=== PATIENT | female | born 1945 | race Caucasian/White ===

== ENCOUNTER 2018-06-15 13:18 | Outpatient (CLI) | payer MEDICARE ==
--- NOTE | 2018-06-16 09:55 | Mammography Report ---
Reason: SCREENING MAMMO Procedure Date: 06/15/2018 Accession Number: [id number] / [id number] Procedure: MGS - Screening Mammo Dig Bilat CPT Code: FULL RESULT: EXAM: Screening Mammo Dig Bilat DATE: 06/15/2018 1:45 PM CLINICAL HISTORY: 73 year-old nulliparous female presents for screening mammogram. TECHNIQUE: Bilateral CC and MLO views were obtained. COMPARISON: 07/01/2016, 12/27/2014. FINDINGS: The breasts demonstrate diffuse fatty replacement bilaterally. There is a stable typically benign coarse calcification in the right breast. No suspicious masses, clustered microcalcifications, or regions of architectural distortion are identified. IMPRESSION: Benign findings RECOMMENDATION: Routine annual screening unless otherwise clinically indicated. BIRADS CATEGORY 2: Benign findings STANDARD QUALIFYING STATEMENTS: 1. This examination was reviewed with the aid of Computer-Aided Detection (CAD). 2. A negative or benign imaging report should not delay biopsy if clinically suspicious findings are present. Consider surgical consultation if warrented. More than 5% of cancers are not identified by imaging. 3. Dense breasts may obscure an underlying neoplasm. 4. This examination was reviewed without the aid of 3D breast imaging (tomosynthesis).
== END 2018-06-15 13:19 | disposition home or self-care (01) ==
LOC: DI.S 13:18
PROVIDERS: ATTEND Internal Medicine
DX: Z12.31 Encounter for screening mammogram for malignant neoplasm of breast (principal)
CPT/HCPCS: 77067

== ENCOUNTER 2018-10-21 08:00 | Outpatient (CLI) | payer MEDICARE | END 2018-10-21 23:59 | disposition home or self-care (01) | LOC: LAB.R 08:00 | PROVIDERS: ATTEND Nurse Practitioner Obstetrics & Gynecology | DX: N18.9 Chronic kidney disease, unspecified (principal) | CPT/HCPCS: 81599; 87255 ==

== ENCOUNTER 2019-06-28 10:55 | Outpatient (CLI) | payer MEDICARE ==
--- NOTE | 2019-06-28 16:37 | XRAY Report ---
Reason: PAIN IN RT HIP JOINT Procedure Date: 06/28/2019 Accession Number: [id number] / [id number] Procedure: XRS - Hip w/Pelvis 2-3V RT CPT Code: Final Report FULL RESULT: EXAM: PELVIS AND RIGHT HIP RADIOGRAPHY EXAM DATE: 06/28/2019 11:07 AM. CLINICAL HISTORY: PAIN IN RT HIP JOINT. COMPARISON: None. TECHNIQUE: Pelvis and right hip, each 1 view. FINDINGS: Bones: Mild osteopenia. No definite fracture or other bone lesion. Joints: Moderate joint space narrowing on the right with sclerosis and marginal osteophytosis. Left hip joint space is well preserved. Unremarkable SI joints. Degenerative changes in lower lumbar spine. Soft Tissues: Prominent soft tissue calcification projects over the left lateral hip and greater trochanter. IMPRESSION: 1. 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 2. Other chronic or incidental findings. RADIA
== END 2019-06-28 10:56 | disposition home or self-care (01) ==
LOC: DI.S 10:55
PROVIDERS: ATTEND Nurse Practitioner Family
DX: M16.11 Unilateral primary osteoarthritis, right hip (principal)

== ENCOUNTER 2020-10-15 13:44 | Outpatient (CLI) | payer MEDICARE ==
--- NOTE | 2020-10-16 10:05 | Mammography Report ---
BILATERAL DIGITAL SCREENING MAMMOGRAM 3D/2D: 10/15/2020 CLINICAL: Routine screening. Comparison is made to exams dated: 06/15/2018 mammogram, 07/01/2016 mammogram, 12/27/2014 mammogram, 09/17/2011 mammogram, and 10/03/2009 mammogram - [facility]. The tissue of both breas ts is predominantly fatty. No significant masses, calcifications, or other findings are seen in either breast. There has been no significant interval change. IMPRESSION: NEGATIVE There is no mammographic evidence of malignancy. A 1 year screening mammogram is recommended. This exam was interpreted at Station ID: [id number]. NOTE: For mammograms, a report in lay terms will be sent to the patient. Approximately 15% of breast malignancies will not be visualized mammographically. In the management of a palpable breast mass, a negative mammogram must not discourage biopsy of a clinically suspicious lesion. Electronically Signed By: Rayo Best acr/penrad:10/15/2020 15:36:04 ACR BI-RADS Category 1: Negative 3341F PARENCHYMAL PATTERN: (F) - The breast(s) demonstrate(s) diffuse fatty replacement. BI-RADS CATEGORY: (1) - 1 RECOMMENDATION: (ANNUAL) - Recommend routine annual screening mammography. [id number] 1 year screening LATERALITY: (B)
== END 2020-10-15 13:45 | disposition home or self-care (01) ==
LOC: DI 13:44
PROVIDERS: ATTEND Family Medicine
DX: Z12.31 Encounter for screening mammogram for malignant neoplasm of breast (principal)

== ENCOUNTER 2020-10-15 13:49 | Outpatient (CLI) | payer MEDICARE ==
--- NOTE | 2020-10-15 15:28 | DEXA Report ---
PROCEDURE: Dexa Spine and/or Hip INDICATIONS: BONE DISORDER TECHNIQUE: Dual energy x-ray absorptiometry (DXA) was performed on a [employer] System. Regions measur ed are the AP Spine, femoral neck, and if needed forearm. COMPARISON: 12/27/2014 FINDINGS: Lumbar Spine: Bone Mineral Density 1.033 g/cm/cm,T score -1.1, osteopenia Left Femoral Neck: Bone Mineral Density 0.809 g/cm/cm, T score -1.6, osteopenia (T score greater or equal to -1.0: NORMAL) (T score from -1.1 to -2.4: OSTEOPENIA) (T score less than or equal to -2.5 to: OSTEOPOROSIS) Impression: Osteopenia. Patient is at increased risk for fracture Patients with diagnosis of osteoporosis or osteopenia should have regular bone mineral density assess ment. For those eligible for Medicare, routine testing is allowed once every 2 years. Testing frequ ency can be increased for patients who have rapidly progressing disease or for those who are receivin g medical therapy to restore bone mass. Reviewed by: Mannie Sams MD on 10/15/2020 3:27 PM PST Approved by: Mannie Sams MD on 10/15/2020 3:27 PM PST Station ID: [id number]
== END 2020-10-15 13:50 | disposition home or self-care (01) ==
LOC: DI 13:49
PROVIDERS: ATTEND Internal Medicine
DX: M85.89 Other specified disorders of bone density and structure, multiple sites (principal)

== ENCOUNTER 2021-11-07 15:11 | Outpatient (CLI) | payer MEDICARE ==
--- NOTE | 2021-11-07 16:12 | XRAY Report ---
PROCEDURE: Hip w/Pelvis 2-3V RT INDICATIONS: RIGHT HIP PAIN TECHNIQUE: AP pelvis with lateral view(s) of the right hip(s). COMPARISON: June 28, 2019 FINDINGS: BONES/JOINTS: No acute, displaced fracture. No widening of the pubic symphysis. The sacroiliac joints are symmetric. The femoral heads are normal ly seated within the acetabulum. Advanced arthrosis of the right hip with joint space loss, sclerosis of the opposing articular surfaces, and osteophytosis. 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 IMPRESSION: 1.Advanced right hip degeneration as detailed above. Reviewed by: Jesus Blevins MD on 11/07/2021 4:10 PM PDT Approved by: Jesus Blevins MD on 11/07/2021 4:10 PM PDT Station ID: [id number]
== END 2021-11-07 15:12 | disposition home or self-care (01) ==
LOC: DI.S 15:11
PROVIDERS: ATTEND Internal Medicine
DX: M16.11 Unilateral primary osteoarthritis, right hip (principal)

== ENCOUNTER 2022-02-26 10:46 | Outpatient (CLI) | payer MEDICARE ==
[2022-02-26 11:02] LABS: BASOPHILS # (AUTO) 0.1 10^3/uL (0.0-0.1); BASOPHILS % (AUTO) 0.9 %; EOSINOPHILS # (AUTO) 0.2 10^3/uL (0.0-0.7); EOSINOPHILS % (AUTO) 2.9 %; HCT - HEMATOCRIT 43.2 % (37.0-47.0); LYMPHOCYTES # (AUTO) 2.6 10^3/uL (1.5-3.5); LYMPHOCYTES % (AUTO) 31.5 %; MEAN CORPUSCULAR HEMOGLOBIN 30.1 pg (27.0-31.0); MEAN CORPUSCULAR HGB CONC 32.4 g/dL (32.0-36.0); MEAN CORPUSCULAR VOLUME 92.9 fL (81.0-99.0); MEAN PLATELET VOLUME 8.8 fL (7.9-10.8); MONOCYTES # (AUTO) 0.6 10^3/uL (0.0-1.0); MONOCYTES % (AUTO) 6.9 %; NEUTROPHILS # (AUTO) 4.7 10^3/uL (1.5-6.6); NEUTROPHILS % (AUTO) 57.6 %; PLT - PLATELET COUNT 300 10^3/uL (130-450); RED BLOOD COUNT 4.65 10^6/uL (4.20-5.40); RED CELL DISTRIBUTION WIDTH 13.8 % (12.0-15.0); WHITE BLOOD COUNT 8.2 x10^3/uL (4.8-10.8)
[2022-02-26 11:21] LABS: CALCIUM 9.7 mg/dL (8.5-10.3); CREATININE 0.6 mg/dL (0.4-1.0); POTASSIUM 4.5 mmol/L (3.5-5.0)
[2022-02-26 11:29] LABS: BILIRUBIN,URINE NEGATIVE (NEGATIVE); GLUCOSE, URINE (UA) NEGATIVE (NEGATIVE); KETONES,URINE (UA) NEGATIVE (NEGATIVE); LEUKOCYTE ESTERASE, URINE NEGATIVE (NEGATIVE); NITRITE,URINE NEGATIVE (NEGATIVE); OCCULT BLOOD,URINE NEGATIVE (NEGATIVE); PROTEIN,URINE NEGATIVE (NEGATIVE); UROBILINOGEN,URINE 0.2 (NORMAL) E.U./dL (NORMAL)
[2022-02-26 11:32] LABS: CLARITY,URINE CLEAR (CLEAR)
[2022-02-26 11:40] LABS: INR 1.1 (0.8-1.2); PT - PROTHROMBIN TIME 12.6 secs (9.9-12.6)
[2022-02-26 11:47] LABS: PARTIAL THROMBOPLASTIN TIME 31.1 secs (24.9-33.3)
[2022-02-26 11:49] LABS: BACTERIA,URINE Few /HPF (None Seen); RBC,URINE 0-5 /HPF (0-5); SQUAMOUS EPITHELIAL CELL,UR MOD Squamous (<= Few); WBC,URINE 0-3 /HPF (0-5)
[2022-02-26 14:41] LABS: ESTIMATED AVERAGE GLUCOSE 123 mg/dL (70-100); HEMOGLOBIN A1c% 5.9 % (4.27-6.07)
== END 2022-02-26 10:47 | disposition home or self-care (01) ==
LOC: LAB 10:46
PROVIDERS: ATTEND Orthopaedic Surgery
DX: Z01.812 Encounter for preprocedural laboratory examination (principal); R73.9 Hyperglycemia, unspecified; N39.0 Urinary tract infection, site not specified; Z51.81 Encounter for therapeutic drug level monitoring
CPT/HCPCS: 36415; 80048; 81001; 83036; 85025; 85610; 85730; 87086

== ENCOUNTER 2022-03-02 13:28 | Outpatient (CLI) | payer MEDICARE | END 2022-03-02 13:29 | disposition home or self-care (01) | LOC: RT 13:28 | PROVIDERS: ATTEND Orthopaedic Surgery | DX: Z01.810 Encounter for preprocedural cardiovascular examination (principal) | CPT/HCPCS: 93005 ==

== ENCOUNTER 2023-08-23 12:45 | Outpatient (CLI) | payer MEDICARE ==
--- NOTE | 2023-08-24 10:41 | Mammography Report ---
BILATERAL DIGITAL SCREENING MAMMOGRAM 3D/2D: 08/23/2023 CLINICAL: Routine screening. Comparison is made to exams dated: 10/15/2020 mammogram, 06/15/2018 mammogram, and 07/01/2016 mammogra m - [facility]. There are scattered areas of fibroglandular density in both breasts (category b / 25%-50% glandular t issue). No significant masses, calcifications, or other findings are seen in either breast. There has been no significant interval change. IMPRESSION: NEGATIVE There is no mammographic evidence of malignancy. A 1 year screening mammogram is recommended. Based on the Tyrer Cuzick model (a risk assessment model) the patients lifetime risk is 3.8% and her 10 year risk is 0.0%. According to the ACR, ACS, and NCCN guidelines, an annual breast MRI exam jordan g with mammogram is recommended if the patients lifetime risk is 20% or greater. This exam was interpreted at Station ID: [id number]. NOTE: For mammograms, a report in lay terms will be sent to the patient. Approximately 15% of breast malignancies will not be visualized mammographically. In the management of a palpable breast mass, a negative mammogram must not discourage biopsy of a clinically suspicious lesion. Electronically Signed By: Corrina clarke/ian:08/23/2023 16:47:03 letter sent: No_Letter ACR BI-RADS Category 1: Negative 3341F PARENCHYMAL PATTERN: (A) - The breast(s) demonstrate(s) scattered fibroglandular densities. BI-RADS CATEGORY: (1) - 1 Mammogram [id number] 1 year screening LATERALITY: (B)
== END 2023-08-23 12:46 | disposition home or self-care (01) ==
LOC: DI.S 12:45
PROVIDERS: ATTEND Physician Assistant
DX: Z12.31 Encounter for screening mammogram for malignant neoplasm of breast (principal); R92.323 Mammographic fibroglandular density, bilateral breasts

== ENCOUNTER 2024-03-10 04:39 | Emergency (ER) | payer MEDICARE ==
--- NOTE | 2024-03-10 05:34 | ED Physician Documentation ---
History of Present Illness - Stated complaint Stated Complaint: GLF/HEAD LAC - Chief complaint Chief Complaint: Trauma Hd/Nk - History obtained from History obtained from: Patient - Additonal information Additional information: 78-year-old woman presents with multiple episodes of nonbloody nonbilious nausea and vomiting since noon yesterday with syncopal episode when getting up to go to the bathroom to vomit overnight. Patient did hit her head on concrete floor. Denies other injury. Denies fever, diarrhea. She does think that she may have sustained food poisoning. PD PAST MEDICAL HISTORY - Past Medical History Past Medical History: No - Past Surgical History Past Surgical History: Yes Ortho: Hip replacement - Allergies Allergies/Adverse Reactions: Allergies Allergy/AdvReac Type Severity Reaction Status Date / Time No Known Drug Allergies Allergy Verified 03/10/24 04:54 - Social History Does the pt smoke?: No Smoking Status: Never smoker Does the pt drink ETOH?: Yes - Immunizations Immunizations: TDAP >10years/unknown PD ED PE NORMAL - Vitals Vital signs reviewed: Yes - General General: Alert and oriented X 3, No acute distress, Well developed/nourished - HEENT HEENT: Atraumatic, PERRL, EOMI, Moist mucous membranes, Pharynx benign, Other (stellate laceration to R forehead) - Neck Neck: No bony TTP - Cardiac Cardiac: RRR - Respiratory Respiratory: No respiratory distress, Clear bilaterally - Abdomen Abdomen: Non tender, Non distended, No organomegaly - Back Back: No spinal TTP - Derm Derm: Normal color, Warm and dry - Neuro Neuro: Alert and oriented X 3 Eye Opening: Spontaneous Motor: Obeys Commands Verbal: Oriented GCS Score: 15 Results - Vitals Vitals: Vital Signs - 24 hr 03/10/24 03/10/24 03/10/24 04:49 05:04 05:59 Temperature 36.4 C L Heart Rate 77 68 74 Respiratory 16 16 18 Rate Blood Pressure 163/90 H 182/81 H 159/101 H O2 Saturation 97 99 99 03/10/24 06:50 Temperature Heart Rate 78 Respiratory 14 Rate Blood Pressure 145/57 H O2 Saturation 98 Oxygen O2 Source Room air - EKG (time done) 0502 EKG releavant findings:: EKG personally interpreted by author of this note. Relevant findings are: Rate: Rate (enter#) (65) Rhythm: NSR [place]: Normal Intervals: Normal CO QRS: Normal Ischemia: Normal ST segments - Labs Labs: Laboratory Tests 03/10/24 03/10/24 05:39 05:39 WBC 14.7 H RBC 5.04 Hgb 14.8 Hct 44.6 MCV 88.5 MCH 29.4 MCHC 33.2 RDW 13.2 Plt Count 278 MPV 9.0 Neut # (Auto) 12.6 H Lymph # (Auto) 1.5 [place] # (Auto) 0.6 Eos # (Auto) 0.0 Baso # (Auto) 0.0 Absolute Nucleated RBC 0.00 Nucleated RBC % 0.0 Sodium 129 L Potassium 3.8 Chloride 94 L Carbon Dioxide 25 Anion Gap 10.0 BUN 8 Creatinine 0.6 Estimated GFR (MDRD) 97 Glucose 198 H Calcium 9.7 Total Bilirubin 0.8 AST 32 ALT 32 Alkaline Phosphatase 79 Total Protein 7.4 Albumin 4.3 Globulin 3.1 Albumin/Globulin Ratio 1.4 Lipase 14 Procedures - Laceration (location) Face right Length in cm: 5 Wound type: Stellate, Irregular Neurovascular status: Sensory intact, Motor intact, Vascular intact Anesthesia: Lidocaine 1% with epi Wound preparation: Irrigated copiously NS, Wound explored, To the base Skin layer closure: Nylon, Size #-0 - enter number (6), Sutures - enter # (8) Other: Patient tolerated well, No complications, Neurovascular intact, Dressing applied, Tetanus booster given - Reduction Body part reduced: Other (left 5th finger dislocation) Anesthesia: Digital block (1% lidocaine without epi) Reduction aftercare: NV intact, Xray confirms reduction, Alignment improved, Splint applied, Patient tolerated well PD Medical Decision Making - ED course ED course: 78yF p/w syncope and collapse with laceration to R forehead, repaired with sutures, as well as nbnb n/v possibly 2/2 food poisoning, improving s/p zofran and fluids. CT head negative for acute pathology. also with dislocated L fifth finger, which was relocated and splinted. plan to f/u outpatient with pcp. return precautions given. Departure - Departure Clinical Impression: Nausea and vomiting, Syncope and collapse, Laceration of forehead, Dislocation closed, finger Condition: Stable Instructions: ED Laceration All Follow-Up: Yunier Joseph MD [Provider Admit Priv/Credential] - Comments: You were seen in the emergency department for Medical evaluation. You did have stitches placed that will need to be removed in 5 days. You also had a dislocated pinky that was relocated. You should keep the splint on until you follow up with orthopedics. Please follow-up with your primary care provider as well regarding your fainting episode and need for further workup such as echocardiogram or zio heart monitoring. Please return to the emergency department if you have any new or worsening symptoms or other concerns. Forms: PCP List
[2024-03-10] MEDS: ONDANSETRON 4 MG/2 ML VIAL IVP STA (05:36)
[2024-03-10] MEDS: TETANUS/DIPHTHERIA/PERTUSSIS 0.5 ML SYRINGE IM ONE (05:39)
[2024-03-10] MEDS: FAMOTIDINE 20 MG/2 ML VIAL IVP STA (05:39)
[2024-03-10] MEDS: SODIUM CHLORIDE 0.9% 1,000 ML IV STA (05:39)
[2024-03-10] MEDS: LIDOCAINE 2%-EPI 1:100000 20 ML MDV SUBQ STA (05:40)
[2024-03-10 05:47] LABS: BASOPHILS % (AUTO) 0.3 %; HCT - HEMATOCRIT 44.6 % (37.0-47.0); HGB - HEMOGLOBIN 14.8 g/dL (12.0-16.0); LYMPHOCYTES # (AUTO) 1.5 10^3/uL (1.5-3.5); LYMPHOCYTES % (AUTO) 10.3 %; MEAN CORPUSCULAR HEMOGLOBIN 29.4 pg (27.0-31.0); MEAN CORPUSCULAR HGB CONC 33.2 g/dL (32.0-36.0); MEAN CORPUSCULAR VOLUME 88.5 fL (81.0-99.0); MONOCYTES # (AUTO) 0.6 10^3/uL (0.0-1.0); MONOCYTES % (AUTO) 3.9 %; NEUTROPHILS # (AUTO) 12.6 10^3/uL (1.5-6.6); NEUTROPHILS % (AUTO) 85.1 %; PLT - PLATELET COUNT 278 10^3/uL (130-450); RED BLOOD COUNT 5.04 10^6/uL (4.20-5.40); RED CELL DISTRIBUTION WIDTH 13.2 % (12.0-15.0); WHITE BLOOD COUNT 14.7 x10^3/uL (4.8-10.8)
[2024-03-10 06:04] LABS: ALBUMIN 4.3 g/dL (3.2-5.5); ALBUMIN/GLOBULIN RATIO 1.4 (1.0-2.2); BILIRUBIN,TOTAL 0.8 mg/dL (0.2-1.0); CALCIUM 9.7 mg/dL (8.5-10.3); CREATININE 0.6 mg/dL (0.6-1.3); POTASSIUM 3.8 mmol/L (3.5-4.5); TOTAL PROTEIN 7.4 g/dL (6.4-8.9)
[2024-03-10] MEDS: HYDROmorphone 0.5 MG/0.5 ML SYRINGE IVP STA (06:42)
[2024-03-10 06:53] VITALS: O2SAT 98
[2024-03-10] MEDS: SODIUM CHLORIDE 0.9% 500 ML IV STA (06:54)
[2024-03-10] MEDS: lidocaine 1% 20 ML MDV SUBQ ONE (07:14)
[2024-03-10] MEDS: LIDOCAINE 1%-EPI 1:100000 50 ML VIAL SUBQ STA (07:14)
--- NOTE | 2024-03-10 07:42 | CT Report ---
PROCEDURE: Head WO INDICATIONS: fall +HT TECHNIQUE: Noncontrast 4.5 mm thick angled axial sections acquired from the foramen magnum to the vertex. For r adiation dose reduction, the following was used: automated exposure control, adjustment of mA and/or kV according to patient size. COMPARISON: None. FINDINGS: Image quality: Excellent. The ventricular system and cortical sulci demonstrate atrophy, consistent for patient's stated age. There are areas of hypodensity in the periventricular and subcortical white matter. There is no acut e intra or extra-axial fluid collection. No acute hemorrhage, mass lesion or midline shift. Brainst em is unremarkable. Globes are symmetrical. Small left frontal scalp hematoma/laceration. Sinuses are aerated. Osseous st ructures are intact. IMPRESSION: 1. No acute intracranial process. 2. Moderate atrophy and chronic microvascular ischemic changes. 3. Small left frontal hematoma/laceration. The above findings are concordant with preliminary report. Reviewed by: Nicole Escalona MD on 03/10/2024 7:40 AM PDT Approved by: Nicole Escalona MD on 03/10/2024 7:40 AM PDT Station ID: [id number]
--- NOTE | 2024-03-10 08:12 | XRAY Report ---
PROCEDURE: Finger(s) LT INDICATIONS: post reduction TECHNIQUE: AP hand, 2 views of the fifth finger(s) acquired. COMPARISON: Earlier study from the same day. FINDINGS: Bones: There is interval reduction of earlier noted dislocation at fifth PIP joint with now anatomic fifth digit alignment. No obvious fracture is identified.. No suspicious bony lesions. Soft tissues: No suspicious soft tissue calcifications or masses. IMPRESSION: Interval reduction of earlier noted fifth PIP joint dislocation with anatomic fifth digit alignment. No displaced fracture is seen. Reviewed by: Panda Ko MD on 03/10/2024 8:11 AM PDT Approved by: Panda Ko MD on 03/10/2024 8:11 AM PDT Station ID: [id number]
--- NOTE | 2024-03-10 08:13 | XRAY Report ---
PROCEDURE: Finger(s) LT INDICATIONS: 5th finger TECHNIQUE: AP hand, 2 views of the fifth finger(s) acquired. COMPARISON: None. FINDINGS: Bones: Dorsal dislocation at fifth PIP joint is noted. Questionable radiolucency involving volar asp ect of fifth middle phalangeal base concerning for small chip fracture in this area. No suspicious [place] lesions. Soft tissues: No suspicious soft tissue calcifications or masses. IMPRESSION: Dorsal dislocation at fifth PIP joint and possible chip fracture involving volar aspect of fifth midd le phalangeal base. Findings are concordant with preliminary interpretation provided by [facility]. Reviewed by: Panda Ko MD on 03/10/2024 8:12 AM PDT Approved by: Panda Ko MD on 03/10/2024 8:12 AM PDT Station ID: [id number]
[2024-03-10 08:19] VITALS: BP 177/91
== END 2024-03-10 08:11 | disposition home or self-care (01) ==
LOC: ED 04:39
DX: S01.81XA Laceration without foreign body of other part of head, initial encounter (principal); S63.287A Dislocation of proximal interphalangeal joint of left little finger, initial encounter; W18.39XA Other fall on same level, initial encounter; Z23 Encounter for immunization; R55 Syncope and collapse; R11.2 Nausea with vomiting, unspecified
CPT/HCPCS: 12013; 26770; 36415; 70450; 73140; 80053; 83690; 85025; 90471; 90715; 93005; 96361; 96374; 96375; 99284; J1170

== ENCOUNTER 2024-03-17 13:39 | Outpatient (CLI) | payer MEDICARE ==
--- NOTE | 2024-03-17 16:49 | XRAY Report ---
PROCEDURE: Hand 3+V LT INDICATIONS: FINGER PAIN,LEFT TECHNIQUE: 3 views of the hand(s) acquired. COMPARISON: Finger plain film imaging 03/12/2024. FINDINGS: Bones: No fractures or dislocations. No suspicious bony lesions. Soft tissues: No suspicious soft tissue calcifications or masses. IMPRESSION: No acute bony abnormality. No evidence of flexor or extensor tendon partial or complete rupture. Reviewed by: Pravin Jean-Baptiste MD on 03/17/2024 4:48 PM PDT Approved by: Pravin Jean-Baptiste MD on 03/17/2024 4:48 PM PDT Station ID: [id number]
== END 2024-03-17 13:40 | disposition home or self-care (01) ==
LOC: DI.S 13:39
PROVIDERS: ATTEND Physician Assistant
DX: M79.645 Pain in left finger(s) (principal)